=== PATIENT | male | born 1965 | race Caucasian/White ===

== ENCOUNTER → 2017-03-20 | Outpatient (CLI) | payer OTHER ==
--- NOTE | ~2017-03-20 | ESTC ---
Cardiac Perfusion Imaging Demographics Patient Name ROSSY Vazquez Gender Male Patient Number [id number] Race Visit Number [id number] Ethnicity Corporate ID Room Number Accession Number [id number] Height 74 inches Date of 1965 Weight 245 pounds Interpreting Brie Lucero MD Date of study 03/20/2017 Physician CURT Supervising /EDGAR Soriano NM Technologist Dipesh Olmos APRN Ordering Physician Brie Lucero MD Stress model technician Stress ECG Reading Nadia Soriano Nurse Kameron Gongora RN Physician DALILA Gibbs RN Procedure Procedure Type: Nuclear Stress Test:Exercise, Cardiolite Stress Test Procedure Start time: 03/20/2017 00:00 Indications: Chest pain. Risk Factors The patient risk factors include:former tobacco use and treated hypercholesterolemia. Conclusions Summary Cardiolite SPECT images demonstrate homogenous uptake of radioactive tracer. NO evidence of inducible reversible defect and no evidence of underlying fixed defect. Normal TID ratio Gated images demonstrate normal left ventricular systolic function, LVEF is 70% Stress Protocols Resting ECG RSR with nonspecific ST changes Resting HR:83 bpm Resting BP:140/80 mmHg Pre-stress physical exam: Patient assessed by Dorothy Zuniga APRN prior to testing. Stress Protocol:Exercise Peak HR:153 bpm HR response: Appropriate Peak BP:1040/80 mmHg BP response: Appropriate Predicted HR: 171 bpm HR/BP product:[id number] % of predicted HR: 89 Max exercise: 13.4 METS Test duration:13:25 min Reason for termination:Target heart rate Exercise effort:Good Perceived exertion:18 ECG Findings Sinus tachycardia. During Exercise ST depression 1 mmHg II, III AVF. At peak exercise ST segments resumed back to baseline. Arrhythmias No rhythm abnormality. Symptoms Shortness of breath. Stress Interpretation Appropriate hemodynamic response to exercise. No significant ST-T wave changes with exercise. EKG portion is negative for ischemia by diagnostic criteria. The Zavala Treadmill score was +10 .This corresponds to a low risk stress test. Stress supervision and interpretation provided by Pam Zuniga APRN . Imaging Results Summed scores - Summed stress score: 10 - Summed rest score: 7 - Summed difference score: 3 Stress ejection Ejection fraction:70 % EDV :114 ml ESV :34 ml Stroke volume :80 ml LV mass :158 gr Imaging Protocols Rest Stress Isotope:Tc99m Sestamibi IV Isotope: Tc99m Sestamibi IV Isotope dose:14.6 mCi Isotope dose:41.8 mCi Date:03/20/2017 07:28 Date:03/20/2017 09:13 Technique: SPECT Technique: Gated Supine SPECT Supine Scan Time:45-60 minutes post Scan Time:15-30 minutes post injection injection Medical History Admission Data Admission date: 03/20/2017 Admission Time: 07:09 Hospital Status: Outpatient. Signatures dtt: Nic Baird (cardio) dtd: 03/20/17 0000 Physician Self Edit
== END | disposition disaster alternative care site (69) ==
LOC: GRAD 07:09
DX: R07.9 Chest pain, unspecified (principal); E78.00 Pure hypercholesterolemia, unspecified; Z87.891 Personal history of nicotine dependence
CPT/HCPCS: A9500